=== PATIENT | male | born 1985 | race Caucasian/White ===

== ENCOUNTER 2018-02-15 18:56 | Emergency (ER) | payer BC ==
[2018-02-15] MEDS ORDERED: SODIUM CHLORIDE 0.9% 1000ML 1,000 ML IVS ONE (19:33)
--- NOTE | 2018-02-15 19:44 | ED.PDOC ---
History of Present Illness - General Chief Complaint: Problem Stated Complaint: rt sided pain Time Seen by Provider: 02/15/18 19:21 Source: patient Exam Limitations: no limitations - History of Present Illness Initial Comments: 1 WK R FLANK PAIN. PAIN RADIATES INTO GROIN. POS DYSURIA. POS MILD N, VX1. H/O KIDNEY STONE 6 MOS AGO. Timing/Duration: week Quality: moderate, sharpness, steady Onset Location: RLQ, right flank Radiation: RLQ, groin Activites at Onset: none Prior abdominal problems: similar symptoms Improving Factors: nothing Worsening Factors: nothing Associated Symptoms: dysuria, lower back pain, nausea/vomiting Allergies/Adverse Reactions: Allergies NO KNOWN ALLERGY Allergy (Unverified 01/05/14 11:09) Home Medications: Ambulatory Orders Sulfamethoxazole-Trimethoprim [Bactrim Ds 800-160 mg] 1 tab PO BID #10 tab 01/05 Review of Systems - Review of Systems Constitutional: States: chills. Denies: diaphoresis, fever EENTM: States: no symptoms reported Respiratory: States: no symptoms reported Cardiology: States: no symptoms reported Gastrointestinal/Abdominal: States: abdominal pain, nausea. Denies: constipation, diarrhea Genitourinary: States: see HPI, dysuria Musculoskeletal: States: back pain. Denies: neck pain Skin: States: no symptoms reported Neurological: States: no symptoms reported Endocrine: States: no symptoms reported Hematologic/Lymphatic: States: no symptoms reported All other Systems: Reviewed and Negative Past Medical History (General) - Patient Medical History Hx Stroke: No Hx Congestive Heart Failure: No Hx Diabetes: No Hx Renal Disease: Yes - Hx kidney stones Surgical History: other - Vaccination History Hx Tetanus, Diphtheria Vaccination: No Hx Influenza Vaccination: No Hx Pneumococcal Vaccination: No Immunizations Up to Date: No - Social History Hx Tobacco Use: Yes Hx Alcohol Use: Yes Family Medical History - Family History Mother Living Status: Still Living Hx Family Cancer: Yes - breast CA Physical Exam - Physical Exam General Appearance: Alert, Other - UNCOMFORTABLE Eyes, Ears, Nose, Throat Exam: PERRL/EOMI, normal ENT inspection Neck: full range of motion, normal inspection Cardiovascular/Respiratory: regular rate, rhythm, no M/R/G Gastrointestinal/Abdominal: normal bowel sounds, soft, no organomegaly, no pulsatile mass, other - [place] NTTP. MILD GENERAL ABD TTP, BUT MAINLY R FLANK TTP. Back Exam: CVA tenderness (R) Extremity: normal range of motion, normal inspection Neurologic: alert, normal mood/affect Skin Exam: normal color, warm/dry Lymphatic: no adenopathy Progress - Progress Progress: 02/15/18 19:46 PT DECLINES OFFER FOR NAUSEA OR PAIN MEDS. HE STATES HE FEELS OK AT PRESENT. 02/15/18 20:53 UA STILL PENDING. CBC NO CONCERNS. CMP - HYPOKALEMIA W/ K+ 3.1. WILL GIVE PO KCL. CT SHOWS BL NONOBSTRUCTIVE STONES. NO HYDROURETER. 3 MM LEFT STONE. SEVERAL R STONES W/ LARGEST AT 3 MM. 02/15/18 21:19 UA NEG. BL NEPHROLITHIASIS R > L. SMALL AT 3 MM, THUS WILL PASS W/O MEDICAL INTERVENTION. PAIN CONTROLLED W/O MEDS. PUSH FLUIDS. 02/15/18 21:22 Departure - Departure Clinical Impression: Right flank pain, Nausea and vomiting in adult, Hypokalemia, Bilateral nephrolithiasis Disposition: Discharge to Home or Self Care Condition: Good Departure Forms: ED Discharge - Pt. Copy, Patient Portal Self Enrollment Instructions: DI for Kidney Stones Diet: resume usual diet Activity: increase activity as tolerated Home Medications: Ambulatory Orders Sulfamethoxazole-Trimethoprim [Bactrim Ds 800-160 mg] 1 tab PO BID #10 tab 01/05 Additional Instructions: Please drink at least 64 oz of water per day to help flush kidney stones and to help prevent new ones. Your blood pressure is running a little high tonight, which can be caused by pain. Please follow-up with your regular doctor to recheck.
--- NOTE | 2018-02-15 19:58 | CT ---
EXAM DESCRIPTION: Abdoment/Pelvis w/o Contrast CLINICAL HISTORY: R FLANK PAIN, H/O KIDNEY STONES COMPARISON: None Available. TECHNIQUE: Contiguous axial images of the abdomen and pelvis were obtained followed by reconstruction images. This exam was performed according to our departmental dose-optimization program, which includes automated exposure control, adjustment of the mA and/or kV according to patient size and/or use of iterative reconstruction technique. FINDINGS: Nonobstructive left renal stone measures 3 mm. Several nonobstructive right renal stones measuring up to 3 mm. No ureteral stone on either side. No dilatation of either ureter. No perinephric stranding. The liver, spleen, pancreas and kidneys are otherwise within normal limits. The gallbladder is unremarkable by CT criteria. Adrenal glands are within normal limits. Aorta is of normal caliber and tapering. There is no free fluid in the abdomen or pelvis. There is no bowel obstruction. There is no stranding of the mesenteric fat to suggest an inflammatory response. The appendix is within normal limits. There is no pericecal inflammation. IMPRESSION: Nonobstructive bilateral renal stones. Electronically signed by: Ilya Dawson 02/15/2018 7:57 PM CALL WORKER PERSON
[2018-02-15] MEDS ORDERED: POTASSIUM CHLORIDE 20 MEQ TAB PO ONE (20:55)
[2018-02-15 21:33] VITALS: BP 147/86; TEMP 97.4; O2SAT 94
== END 2018-02-15 21:35 | disposition home or self-care (01) ==
LOC: ER 18:56
DX: N20.0 Calculus of kidney (principal); R11.2 Nausea with vomiting, unspecified; E87.6 Hypokalemia; Z87.442 Personal history of urinary calculi; Z87.891 Personal history of nicotine dependence
CPT/HCPCS: 74176; 80053; 81001; 85025; J7030

== ENCOUNTER 2018-03-04 15:51 | Emergency (ER) | payer BC ==
[2018-03-04] MEDS: HYDROcodone 5MG/APAP 325MG 1 EA TAB PO ONE ×2 (16:23→16:26)
[2018-03-04 16:35] VITALS: TEMP 97.2; O2SAT 98
--- NOTE | 2018-03-04 17:23 | ED.PDOC ---
History of Present Illness - General Chief Complaint: Abdominal Pain Stated Complaint: RT SIDED FLANK PAIN Time Seen by Provider: 03/04/18 16:10 Source: patient Exam Limitations: no limitations - History of Present Illness Initial Comments: the patient is a 33-year-old male presenting to emergency room with mild right flank pain that resolved just prior to arrival followed by mild suprapubic discomfort and need to go urinate. hat has mostly resolved. No fevers. No dysuria prior to that. About a week ago he did have pain from a kidney stone apparently. CT scan at that time showed only very small stones less than 3 mm. Timing/Duration: 1 hour Severity: mild Improving Factors: nothing Worsening Factors: nothing Associated Symptoms: denies symptoms Allergies/Adverse Reactions: Allergies NO KNOWN ALLERGY Allergy (Unverified 01/05/14 11:09) Home Medications: Ambulatory Orders Sulfamethoxazole-Trimethoprim [Bactrim Ds 800-160 mg] 1 tab PO BID #10 tab 01/05 Review of Systems - Review of Systems Constitutional: States: no symptoms reported EENTM: States: no symptoms reported Respiratory: States: no symptoms reported Cardiology: States: no symptoms reported Musculoskeletal: States: see HPI, back pain Neurological: States: no symptoms reported Endocrine: States: no symptoms reported All other Systems: No Change from Baseline Past Medical History (General) - Patient Medical History Hx Stroke: No Hx Congestive Heart Failure: No Hx Diabetes: No Hx Renal Disease: Yes - Hx kidney stones Surgical History: no surgical history - Vaccination History Hx Tetanus, Diphtheria Vaccination: No Hx Influenza Vaccination: No Hx Pneumococcal Vaccination: No - Social History Hx Tobacco Use: Yes Hx Alcohol Use: Yes Family Medical History - Family History Mother Living Status: Still Living Hx Family Cancer: Yes - breast [place] Physical Exam - Physical Exam General Appearance: Alert, Comfortable, No apparent distress Eye Exam: bilateral normal Ears, Nose, Throat: hearing grossly normal Neck: full range of motion Respiratory: no respiratory distress, no accessory muscle use Cardiovascular/Chest: no edema Gastrointestinal/Abdominal: non tender, soft Rectal Exam: deferred Back Exam: no CVA tenderness, no vertebral tenderness Extremity: normal range of motion, normal inspection, normal capillary refill 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 This is most consistent with passage of a very small kidney stone. He needs to keep himself well-hydrated. Urinalysis shows no evidence of any infection. Motrin can be used for discomfort. Keep follow-up with primary care doctor otherwise. Departure - Departure Clinical Impression: Ureteric stone Disposition: Discharge to Home or Self Care Condition: Fair Departure Forms: ED Discharge - Pt. Copy, Patient Portal Self Enrollment Instructions: Kidney Stones (DC) Diet: regular diet Activity: increase activity as tolerated Home Medications: Ambulatory Orders Sulfamethoxazole-Trimethoprim [Bactrim Ds 800-160 mg] 1 tab PO BID #10 tab 01/05 Additional Instructions: the patient is a 33-year-old male presenting to the emergency room with transient right flank pain with associated pain in the bladder. This is most consistent with passage of a very small kidney stone. He needs to keep himself well-hydrated. Urinalysis shows no evidence of any infection. Motrin can be used for discomfort. Keep follow-up with primary care doctor otherwise.
[2018-03-04 17:34] VITALS: BP 146/86
== END 2018-03-04 17:25 | disposition home or self-care (01) ==
LOC: ER 15:51
DX: N20.1 Calculus of ureter (principal); Z87.442 Personal history of urinary calculi; Z87.891 Personal history of nicotine dependence

== ENCOUNTER 2018-03-20 18:39 | Emergency (ER) | payer BC ==
--- NOTE | 2018-03-20 19:02 | ED.PDOC ---
History of Present Illness - General Chief Complaint: Problem Stated Complaint: right sided abd pain; dysuria Time Seen by Provider: 03/20/18 18:54 Source: patient Exam Limitations: no limitations - History of Present Illness Initial Comments: Mauricio Haile 33 y/o male stated that he had been having intermittent sharp RLQ abd pain radiating to his right groin for the last one month and with some intermittent dysuria .Denies urethral discharge,diarrhea,constipation,hematuria ,N/V. he stated that his symptoms getting more constant the last 2 days. No chronic medical problem.Has history of nephrolithiasis in the past. Timing/Duration: other - see hpi Severity: moderate Improving Factors: nothing Worsening Factors: nothing Associated Symptoms: other - see hpi Allergies/Adverse Reactions: Allergies NO KNOWN ALLERGY Allergy (Unverified 01/05/14 11:09) Home Medications: Ambulatory Orders Doxycycline Hyclate 100 mg PO BID 10 Days #20 tab 03/20/18 Multiple Vitamins W/ Minerals [Multivitamin Adults] 1 tab PO DAILY 03/20/18 Naproxen Sodium [Aleve] 440 mg PO BID PRN 03/20/18 Review of Systems - Review of Systems Gastrointestinal/Abdominal: States: see HPI Genitourinary: States: see HPI All other Systems: Reviewed and Negative, No Change from Baseline Past Medical History (General) - Patient Medical History Hx Stroke: No Hx Congestive Heart Failure: No Hx Diabetes: No Hx Renal Disease: Yes - Hx kidney stones Surgical History: no surgical history - Vaccination History Hx Tetanus, Diphtheria Vaccination: No Hx Influenza Vaccination: No Hx Pneumococcal Vaccination: No - Social History Hx Tobacco Use: Yes Hx Alcohol Use: Yes Hx Substance Use: No Hx Physical Abuse: No Hx Emotional Abuse: No Family Medical History - Family History Mother Living Status: Still Living Hx Family Cancer: Yes - breast [place] Physical Exam - Physical Exam General Appearance: Alert, Comfortable, No apparent distress Eye Exam: bilateral normal Ears, Nose, Throat: hearing grossly normal, normal ENT inspection, normal pharynx Neck: non-tender, supple, normal inspection Respiratory: chest non-tender, lungs clear, normal breath sounds Cardiovascular/Chest: normal peripheral pulses, regular rate, rhythm, no murmur Peripheral Pulses: radial,right: 2+, radial,left: 2+ Gastrointestinal/Abdominal: non tender, soft, no organomegaly, other - circumcised male;no urethral discharge noted;discomfort on pressure to crotch area Extremity: no pedal edema, no calf tenderness Neurologic: alert, oriented x 3 Skin Exam: normal color, warm/dry Progress - Progress Progress: 03/20/18 19:10 Vital Signs - 8 hr 03/20/18 18:44 Temperature 97.1 F L Pulse Rate [ 84 left brachial] Respiratory 20 Rate Blood Pressure 147/98 [left brachial] O2 Sat by Pulse 98 Oximetry - Results/Orders Results/Orders: 03/20/18 19:06 GC CHLAMYDIA RNA,TMA Routine Laboratory Results - last 24 hr 03/20/18 03/20/18 03/20/18 19:02 19:18 19:18 WBC 7.7 RBC 5.04 Hgb 16.1 Hct 47.2 MCV 93.8 MCH 31.9 H MCHC 34.0 RDW 13.2 Plt Count 260 MPV 8.2 Absolute Neuts (auto) 4.70 Absolute Lymphs (auto) 1.70 Absolute Monos (auto) 0.60 Absolute Eos (auto) 0.60 H Absolute Basos (auto) 0.00 Neutrophils % 61.4 Lymphocytes % 22.7 Monocytes % 7.7 Eosinophils % 7.8 H Basophils % 0.4 Sodium 140 Potassium 4.3 Chloride 98 L Carbon Dioxide 33 H Anion Gap 13.3 BUN 15 Creatinine 1.36 H BUN/Creatinine Ratio 11.0 Random Glucose 105 Serum Osmolality 280.6 Calcium 9.9 Total Bilirubin 0.5 AST 31 ALT 58 Alkaline Phosphatase 59 Serum Total Protein 7.5 Albumin 4.5 Globulin 3.0 Albumin/Globulin Ratio 1.5 Urine Color Yellow Urine Appearance Clear Urine pH 7.0 Ur Specific [place] 1.015 Urine Protein Negative Urine Glucose (UA) Negative Urine Ketones Negative Urine Blood Negative Urine Nitrite Negative Urine Bilirubin Negative Urine Urobilinogen 0.2 Ur Leukocyte Esterase Negative Urine RBC 0 Urine WBC 0 Ur Epithelial Cells 0-1 Urine Bacteria 0 Discuss all test findings with patient that he was also checked for STI and will be notified on the send out test result;agreeable to be treated empirically for sti;and also his ct abd/p-presence of stone in both kidneys explained to him not causing his present symptoms since his urine is clear. - EKG/XRAY/CT CT Ordered: Yes - non obstructing bilateral renal calculi,no ureteral calculus.nml-appendix Departure - Departure Clinical Impression: Right groin pain Abdominal pain Qualifiers: Abdominal location: right lower quadrant Qualified Code(s): R10.31 - Right lower quadrant pain Time of Disposition: 20:10 Disposition: Discharge to Home or Self Care Condition: Fair Departure Forms: ED Discharge - Pt. Copy, Patient Portal Self Enrollment Prescriptions: Doxycycline Hyclate 100 mg PO BID 10 Days #20 tab Home Medications: Ambulatory Orders Doxycycline Hyclate 100 mg PO BID 10 Days #20 tab 03/20/18 Multiple Vitamins W/ Minerals [Multivitamin Adults] 1 tab PO DAILY 03/20/18 Naproxen Sodium [Aleve] 440 mg PO BID PRN 03/20/18 Additional Instructions: Need to sign up with primary Md [id number];Return to ER as needed
--- NOTE | 2018-03-20 19:40 | CT ---
EXAM DESCRIPTION: Abdoment/Pelvis w/o Contrast CLINICAL HISTORY: 33 years Male rlq pain COMPARISON: None. TECHNIQUE: Contiguous axial images obtained through the abdomen and pelvis without IV contrast. Reformatted images obtained. This exam was performed according to our department optimization program which includes automated exposure control, adjustment of the mA and/or kv according to patient size and/or use of iterative reconstruction technique. FINDINGS: The lung bases are clear. The liver appears unremarkable. The spleen and pancreas appear unremarkable. No adrenal masses. The kidneys appear unremarkable. No hydronephrosis or definite ureteral calculi. The gallbladder is visualized. No aneurysmal dilatation of the aorta. The stomach is distended with food and fluid. No bowel obstruction. The appendix appears unremarkable. No free pelvic fluid. IMPRESSION: The stomach is distended with food and fluid. The appendix appears unremarkable. There are bilateral nonobstructing renal calculi which appear similar compared to the prior study. No hydronephrosis or ureteral calculi. Electronically signed by: Vickey Bolaños MD 03/20/2018 7:39 PM FEATHER SHAPER
[2018-03-20 19:57] VITALS: BP 142/94; TEMP 98.5; O2SAT 96
[2018-03-20] MEDS ORDERED: LIDOCAINE 1% 2 ML VIAL INJ ONE (20:10)
[2018-03-20] MEDS: AZITHROMYCIN 250 MG TAB PO ONE (20:12)
== END 2018-03-20 20:25 | disposition home or self-care (01) ==
LOC: ER 18:39
DX: R10.31 Right lower quadrant pain (principal); N20.0 Calculus of kidney; Z87.891 Personal history of nicotine dependence
CPT/HCPCS: 36415; 74176; 80053; 81001; 85025; 87491; 87591; J0696; Q0144

== ENCOUNTER → 2018-05-10 | Outpatient (CLI) | payer BC | LOC: YCFC.O 16:16 | PROVIDERS: ATTEND Family Medicine | DX: A64 Unspecified sexually transmitted disease (principal) ==